=== PATIENT | female | born 1990 | race Caucasian/White ===

== ENCOUNTER 2021-09-07 14:30 | Emergency (ER) | payer OTHER, SELFPAY ==
[2021-09-07 14:40] VITALS: BP 134/77; PULSE 87; RESP 17; TEMP 37; O2SAT 99; BMI 28.4
--- NOTE | 2021-09-07 15:08 | HMH.EDUTC ---
[facility] [place] Disposition Clinical Impression: Otitis media Qualifiers: Otitis media type: suppurative Chronicity: acute Laterality: right Recurrence: non-recurrent Spontaneous tympanic membrane rupture: without spontaneous rupture Qualified Code(s): H66.001 - Acute suppurative otitis media without spontaneous rupture of ear drum, right ear Disposition: Home, Self-Care Condition on Discharge: Good Instructions: Middle Ear Infection, DI for Sinusitis Additional Instructions: Start antibiotic patient to take as ordered for a full length of time even if you feel better. Sinus infections do not get better overnight. It may take 2-3 days to notice much improvement so be sure to use conservative measures as discussed for symptoms. Flonase 1 spray each nostril daily to help with nasal congestion, sinus and ear pressure/information Increase fluids Humidifier/vaporizer as needed Tylenol and ibuprofen as needed for fever or pain. If symptoms do not improve or get worse return or be seen in the ER Follow-up with primary care this week Prescriptions: Amoxicillin [Amoxicillin 500mg Tab] 500 mg PO BID 10 Days #20 tab Transmission Status: Pending to [facility] Fluticasone Propionate [Flonase 50mcg nasal spray 16gm] 1 spr NS DAILY 14 Days #9.9 ml Transmission Status: Pending to [facility] Referrals: Virginia Peck APRN [Primary Care Provider] - Time of Disposition: 15:19 Medical Decision Making - Shaheen Inquiry Pt receiving controlled substance: No Vital Signs: 09/07/21 14:40 Temperature 98.6 F Temperature Source Oral Pulse Rate [Right Brachial] 87 Respiratory Rate 17 Blood Pressure [Right Arm] 134/77 Blood Pressure Mean [Right Arm] 96 Blood Pressure Source [Right Arm] Automatic Cuff Blood Pressure Position [Right Arm] Sitting 02 Sat by Pulse Oximetry 99 Oxygen Delivery Method Room Air [facility] [place] HPI - General Chief complaint: Urgent Treatment Center Stated complaint: h/a, congestion, sore throat, weakness, soa, cough Time Seen by Provider: 09/07/21 15:08 Mode of Arrival: Ambulatory Source of Information: Patient Limitations: No Limitations Description of Symptoms (Recalled from Triage Doc. by RN): PATIENT C/O COUGH, CONGESTION, SORE THROAT, SOA, FATIGUE, AND DIZZY SPELLS X 2 WEEKS HEENT Symptoms (Recalled from RN notes): Yes Resp Symptoms (Recalled from RN notes): Yes Skin Symptoms (Recalled from RN notes): No MS Symptoms (Recalled from RN notes): No Functional Status (Recalled from RN notes): WNL - History of Present Illness Provider Complaint: 31 yr old female presents for cough,congestion, thick yellow drainage at times,sore throat, ear pain, soa,fatigue and dizzy speels for 2 weeks and worsening. - Related Data Home Medications Medication Instructions Recorded Confirmed norgestimate 0.25 mg-ethinyl 1 tab PO DAILY tab 06/12/19 06/11/21 estradiol 35 mcg tablet Previous Rx's Medication Instructions Recorded fluoxetine 10 mg capsule 10 mg PO DAILY #30 cap 08/19/21 methylphenidate HCl 10 mg 10 mg PO DAILY #30 cap 08/19/21 capsule,extended release (40-60) sprinkle Amoxicillin [Amoxicillin 500mg Tab] 500 mg PO BID 10 Days #20 tab 09/07/21 Fluticasone Propionate [Flonase 1 spr NS DAILY 14 Days #9.9 ml 09/07/21 50mcg nasal spray 16gm] Allergies Allergy/AdvReac Type Severity Reaction Status Date / Time doxycycline Allergy skin Verified 08/19/21 09:28 irritation Sulfa (Sulfonamide Allergy hives Verified 08/19/21 09:28 Antibiotics) - Worker's Comp Is this a Worker's Comp case?: No [facility] History - Hepatitis A Screen Drug use history?: No High risk sexual behaviors?: No History of sexually transmitted infection?: No Currently employed?: No Childcare worker?: No Do you have indoor plumbing?: Yes Do you have electricity?: Yes Attestation statement:: This patient has been screened for Hepatitis A risk factors. I have reviewed the patient's past medical h
[2021-09-07 15:22] VITALS: BP 134/77; PULSE 87; RESP 17; TEMP 37; O2SAT 99
== END 2021-09-07 15:24 | disposition home or self-care (01) ==
PROVIDERS: Emergency Provider Nurse Practitioner Family; PCP Nurse Practitioner Family
DX: H66.001 Acute suppurative otitis media without spontaneous rupture of ear drum, right ear (principal); J02.9 Acute pharyngitis, unspecified; R06.02 Shortness of breath; R53.1 Weakness; R53.82 Chronic fatigue, unspecified; F32.A Depression, unspecified; F41.9 Anxiety disorder, unspecified; Z79.51 Long term (current) use of inhaled steroids; Z88.2 Allergy status to sulfonamides; Z88.8 Allergy status to other drugs, medicaments and biological substances
CPT/HCPCS: 99213; G0463

== ENCOUNTER 2021-10-28 10:23 | Emergency (ER) | payer OTHER, SELFPAY ==
[2021-10-28 10:25] VITALS: BP 131/71; PULSE 79; RESP 19; TEMP 36.6; O2SAT 99; BMI 28.4
--- NOTE | 2021-10-28 10:40 | HMH.EDUTC ---
[facility] [place] Clinical Impression: URI (upper respiratory infection) Qualifiers: URI type: unspecified URI Qualified Code(s): J06.9 - Acute upper respiratory infection, unspecified Disposition: Home, Self-Care Condition on Discharge: Good Instructions: Sore Throat, Dizziness, Nonvertigo Additional Instructions: *Monitor Temp, Over the counter Motrin or Tylenol as directed/as needed Tylenol every 4 hours and Motrin every 6 hours (as long as your family doctor has told you that you can take it) for fever or pain. and straight to ER if unable to lower temp less than 101.0 after medication given *Warm salt water gargles may help to soothe the throat *Throat Lozenges *Warm fluids like tea with honey may help to soothe the throat *Sleep elevated *Humidifier/Vaporizer Your throat swab was sent for culture. Those results are typically sent to your primary care. Be sure to follow up in 2-3 days with your family doctor/primary care physician if no improvement so they can review those result and treat if necessary. If you don?t have a primary care doctor, I recommend you get one but in the mean time, you will have to return to a walk in clinic Follow up IMMEDIATELY for new or worsening symptoms or no Noticeable improvement over the next 48-72 hours. 911 for difficulty breathing or swallowing You were tested for today for Upper Respiratory Panel with COVID19 your test result should be back in the next 24-48 hours, you results will be available on the [facility] My Health Portal Prescriptions: Albuterol Sulfate [Proventil-HFA 90mcg/puff Inh] 1 - 2 puffs IH Q6HP PRN #1 each PRN Reason: Shortness Of Breath Transmission Status: Pending to [facility] Fluticasone Propionate [Flonase 50mcg nasal spray 16gm] 1 spr NS DAILY #1 each Transmission Status: Pending to [facility] methylPREDNISolone [Medrol 4mg tab] 4 mg PO DIRECTED #21 tab Transmission Status: Pending to [facility] Cefdinir [Omnicef 300mg Capsule] 300 mg PO BID #20 cap Transmission Status: Pending to [facility] Referrals: Virginia Peck APRN [Primary Care Provider] - As needed Time of Disposition: 11:55 Medical Decision Making - Shaheen Inquiry Pt receiving controlled substance: No Shaheen was queried for this patient: No Vital Signs: 10/28/21 10:25 Temperature 97.9 F Temperature Source Oral Pulse Rate [Right Brachial] 79 Respiratory Rate 19 Blood Pressure [Right Arm] 131/71 Blood Pressure Mean [Right Arm] 91 Blood Pressure Source [Right Arm] Automatic Cuff Blood Pressure Position [Right Arm] Sitting 02 Sat by Pulse Oximetry 99 Oxygen Delivery Method Room Air - Lab Data Lab results reviewed: Yes: I reviewed the patient's lab results. Lab Results 10/28/21 10:38: Group A Strep Rapid Negative 10/28/21 11:20: Monoscreen Negative Orders (Tests/Meds): ORDERS Category Date Time Status Strep Screen Confirmation Stat Micro 10/28/21 10:38 Received Medical Decision Narrative: Patient requesting testing for [place] Denies known exposure [facility] [place] - General Stated complaint: sore throat, cough, dizzy, weakness, soa Time Seen by Provider: 10/28/21 10:40 Mode of Arrival: Ambulatory Source of Information: Patient Limitations: No Limitations Description of Symptoms (Recalled from Triage Doc. by RN): PATIENT C/O CONGESTION, SORE THROAT, DRY COUGH, SOA, FATIGUE AND DIZZINESS HEENT Symptoms (Recalled from RN notes): Yes Resp Symptoms (Recalled from RN notes): Yes Skin Symptoms (Recalled from RN notes): No MS Symptoms (Recalled from RN notes): No Functional Status (Recalled from RN notes): WNL - History of Present Illness Provider Complaint: Patient states that for the last week she has been having sore throat, loss of voice, dry cough, SOA at times and felt dizzy on and off States that she had the same thing about a month ago and had an ear infection States that she is not sure if that is what is going o
[2021-10-28 11:13] LABS: Strep Scrn Group A (Rapid) Negative (Negative)
[2021-10-28 11:46] LABS: Monoscreen (Rapid) Negative (Negative)
[2021-10-28 11:57] VITALS: BP 131/71; PULSE 79; RESP 19; TEMP 36.6; O2SAT 99
[2021-10-28 12:05] LABS: Adenovirus,PCR Not Detected (NotDetected); Bordetella Pertussis Not Detected (NotDetected); Chlamydophila Pneumoniae, PCR Not Detected (NotDetected); Coronavirus 19, PCR Not Detected (NotDetected); Coronavirus 229E Not Detected (NotDetected); Coronavirus NL63 Not Detected (NotDetected); Coronavirus OC43 Not Detected (NotDetected); Coronovirus HKU1,PCR Not Detected (NotDetected); Human Metapneumovirus Not Detected (NotDetected); Influenza A, PCR Not Detected (NotDetected); Influenza AH1, 2009 Not Detected (NotDetected); Influenza AH1, PCR Not Detected (NotDetected); Influenza AH3,PCR Not Detected (NotDetected); Influenza B, PCR Not Detected (NotDetected); Mycoplasma Pneumoniae, PCR Not Detected (NotDetected); Parainfluenza 1, PCR Not Detected (NotDetected); Parainfluenza 2, PCR Not Detected (NotDetected); Parainfluenza 3, PCR Not Detected (NotDetected); Parainfluenza 4, PCR Not Detected (NotDetected); Respiratory Syncytial Virus Not Detected (NotDetected); Rhinovirus/Enterovirus Not Detected (NotDetected)
== END 2021-10-28 12:03 | disposition home or self-care (01) ==
PROVIDERS: Emergency Provider Nurse Practitioner; PCP Nurse Practitioner Family
DX: J06.9 Acute upper respiratory infection, unspecified (principal); Z88.1 Allergy status to other antibiotic agents; Z88.2 Allergy status to sulfonamides
CPT/HCPCS: 86318; 87430; 87581; 87632; 87798; 99212; C9803; G0463; U0003; U0005

== ENCOUNTER 2023-01-28 13:34 | Emergency (ER) | payer OTHER, SELFPAY ==
[2023-01-28 13:40] VITALS: BP 113/79; PULSE 81; RESP 18; TEMP 36.9; O2SAT 98; BMI 26.8
[2023-01-28 13:56] VITALS: BP 113/79; PULSE 81; RESP 18; TEMP 36.9; O2SAT 98
== END 2023-01-28 14:02 | disposition home or self-care (01) ==
LOC: UTC 13:38
PROVIDERS: Emergency Provider Nurse Practitioner; PCP Nurse Practitioner Family
DX: Z23 Encounter for immunization (principal)
CPT/HCPCS: 90715; 96372; 99212; G0463

== ENCOUNTER 2023-12-17 11:12 | Emergency (ER) | payer SELFPAY ==
--- NOTE | 2023-12-17 11:25 | EXP.UTC ---
Discharge Plan Disposition Patient Disposition: Home, Self-Care Condition: Good Prescriptions Prescriptions: New phenazopyridine [Pyridium] 200 mg tablet 200 mg PO Q8H 2 Days Qty: 6 0RF nitrofurantoin monohyd/m-cryst [Macrobid] 100 mg Capsule 100 mg PO BID Qty: 10 0RF Rx Instructions: must administer with a meal/food No Action Caplyta 42 mg capsule 42 mg PO DAILY Qty: 30 1RF methylphenidate HCl 15 mg cap,ER sprinkle,biphasic 40-60 15 mg PO DAILY Qty: 30 0RF buspirone 10 mg tablet 10 mg PO BID Qty: 60 1RF Referrals Follow up/Referrals: Virginia Peck APRN [Primary Care Provider] - See instructions Activity Restrictions/Add. Instructions Additional Instructions/Restrictions: Drink plenty of fluids. Take tylenol or ibuprofen for pain or fever. Take the medications as directed. Follow up with your regular doctor. GO TO THE ER FOR ANY WORSENING SYMPTOMS The pyridium will make your urine turn orange, this is an expected side effect. It will stain your clothes if it comes into contact with them. We will culture the urine. That will tell what bacteria is causing your infection and which antibiotics will treat it best. Sometimes the first antibiotic we prescribe turns out to not work against different bacteria. So, make sure you follow up within 3 days if you are not getting better. Clinical Impressions Clinical Impression: UTI (urinary tract infection) Instructions Patient Instructions: Urine Culture, DI for Urinary Tract Infection (UTI), Phenazopyridine, Nitrofurantoin Print Language Print Language: Niuean Discharge ED Provider: Mark Sosa [facility] General Stated complaint: Pain and frequent urination Time Seen by Provider: 12/17/23 11:25 Related Data Previous Rx's ?Medication ?Instructions ?Recorded lumateperone 42 mg capsule 42 mg PO DAILY #30 caps 11/09/23 (Caplyta) methylphenidate HCl 15 mg 15 mg PO DAILY #30 caps 11/09/23 capsule,extended release (40-60) sprinkle buspirone 10 mg tablet 10 mg PO BID #60 tabs 12/13/23 nitrofurantoin 100 mg PO BID #10 caps 12/17/23 monohydrate/macrocrystals 100 mg capsule (Macrobid) phenazopyridine 200 mg tablet 200 mg PO Q8H 2 days #6 tabs 12/17/23 (Pyridium) Allergies Allergy/AdvReac Type Severity Reaction Status Date / Time doxycycline Allergy skin Verified 11/16/23 09:24 irritation Sulfa (Sulfonamide Allergy hives Verified 11/16/23 09:24 Antibiotics) [facility] Disclaimer: The information contained in this section may have been updated after the patient was seen, as this information can be updated by other users. Medical History (Updated 12/17/23 @ 12:06 by Mark Sosa APRN) Generalized anxiety disorder Attention deficit disorder (ADD) in adult Social History Smoking Status: Never smoker alcohol intake: never substance use type: denies use current occupational status: other Travel in the last 8 weeks: None housing: house number of children: 0 ROS Obtained: Yes All systems reviewed & no additional complaints except as documented Constitutional Constitutional: Reports system reviewed and no additional complaints, except as documented, Denies chills and Denies fever(s) Eyes Eyes: Denies eye discharge ENT Ears, Nose, Mouth, and Throat: Denies dysphagia, Denies sore throat and Denies throat swelling Cardiovascular Cardiovascular: Denies chest pain and Denies dyspnea Respiratory Respiratory: Denies chest congestion, Denies cough and Denies dyspnea Gastrointestinal Gastrointestingal: Denies abdominal pain, constipation, diarrhea, dysphagia, nausea or vomiting Genitourinary Female Genitourinary: Reports as per HPI, Reports dysuria, Reports urinary frequency, Denies urinary incontinence, Reports urinary hesitancy and Reports urinary urgency Musculoskeletal Musculoskeletal: Denies arthralgias and Reports back pain Integumentary/Breasts Skin/Breast: Denies rash Neurologic Neurologic: Denies paresthesias Allergic/Immunologic Allergic/Immunologic: Denies throat swelling Physical Exam General General appearance: alert and in no apparent distress Head Head exam: atraumatic and normocephalic Eye Eye exam: Present normal appearance, PERRL and EOMI ENT ENT exam: Present normal exam, mucous membranes moist, TM's normal bilaterally and normal external ear exam Neck Neck exam: Present normal inspection, full ROM and trachea midline; Absent tenderness, meningismus or lymphadenopathy Chest Chest inspection: Present normal inspection and symmetric chest wall rise; Absent tenderness Respiratory Respiratory exam: Present normal lung sounds bilaterally; Absent respiratory distress, wheezes or stridor Cardiovascular Cardiovascular exam: Present regular rate, normal rhythm and normal heart sounds Abdominal Exam Abdominal exam: Present soft and normal bowel sounds; Absent distention, tenderness, guarding, rebound, rigidity, incision, psoas sign, obturator sign, heel tap sign, Acuna's sign, Rovsing's sign or tenderness at McBurney's Point Extremities Exam Extremities exam: Present normal inspection, full ROM and normal capillary refill; Absent tenderness, edema, joint swelling, calf tenderness or cyanosis Back Exam Back exam: Present normal inspection and full ROM; Absent tenderness, CVA tenderness (R) or CVA tenderness (L) Neurological Exam Neurological exam: Present alert, oriented X3 and normal gait Psychiatric Psychiatric exam: Present normal affect and normal mood Skin Skin exam: Present warm, dry, intact and normal color Lymphatic Lymphatic Findings: no adenopathy Medical Decision Making Medical Records Medical records reviewed: No I reviewed the patient's medical records. Shaheen Inquiry Pt receiving controlled substance: No Lab Data Lab results reviewed: Yes I reviewed the patient's lab results.
[2023-12-17 11:26] VITALS: BP 124/77; PULSE 85; RESP 18; TEMP 36.9; O2SAT 98; BMI 27.8
[2023-12-17 11:30] LABS: Apearance,Urine Clear (Clear); Bilirubin,Urine Negative (Negative); Blood, Urine 4+ (Negative); Color,Urine Dark Yellow (Yellow); Glucose,Urine (UA) Negative (Negative); Ketones,Urine Negative (Negative); Protein,Urine Negative (Negative); UTC Leukocyte Esterase,Urine Negative (Negative); UTC Nitrate,Urine Negative (Negative); Urobilinogen,Urine 0.2 EU/dl (0.2)
[2023-12-17 12:16] VITALS: BP 124/77; PULSE 85; RESP 18; TEMP 36.9; O2SAT 98
== END 2023-12-17 12:16 | disposition home or self-care (01) ==
PROVIDERS: Emergency Provider Nurse Practitioner Family; PCP Nurse Practitioner Family
DX: N39.0 Urinary tract infection, site not specified (principal); R30.0 Dysuria; R35.0 Frequency of micturition
CPT/HCPCS: 81003; 99212; 99214; G0463